=== PATIENT | female | born 1990 | race Caucasian/White ===

== ENCOUNTER 2016-08-23 04:18 | Emergency (ER) | payer SELFPAY ==
[2016-08-23] MEDS ORDERED: ONDANSETRON 4 MG TAB.RAPDIS PO ONE (06:03)
[2016-08-23] MEDS ORDERED: HALOPERIDOL LACTATE INJ 5 MG/1 ML VIAL IM ONE (06:29)
[2016-08-23 06:30] LABS: ABSOLUTE BASOPHILS # (AUTO) 0.1 10^3/uL (0.0-0.2); ABSOLUTE LYMPHOCYTES (AUTO) 1.1 10^3/uL (0.5-4.7); ABSOLUTE MONOCYTES (AUTO) 0.7 10^3/uL (0.1-1.4); ABSOLUTE NEUT (AUTO) 12.9 10^3/uL (1.7-8.2); BASOPHILS % (AUTO) 0.4 % (0-2); EOSINOPHILS % (AUTO) 0.1 % (0-6); HEMATOCRIT 44.5 % (36.0-47.0); HEMOGLOBIN 15.3 g/dL (12.0-15.5); HGB HCT DIFFERENCE 1.4; LYMPHOCYTES % (AUTO) 7.5 % (13-45); MEAN CORPUSCULAR HEMOGLOBIN 31.1 pg (27.0-33.4); MEAN CORPUSCULAR HGB CONC 34.3 g/dL (32.0-36.0); MEAN CORPUSCULAR VOLUME 91 fl (80-97); MONOCYTES % (AUTO) 4.4 % (3-13); RED BLOOD COUNT 4.91 10^6/uL (3.72-5.28); RED CELL DISTRIBUTION WIDTH 13.5 % (11.5-14.0); SEGMENTED NEUTROPHILS % (AUTO) 87.6 % (42-78); WHITE BLOOD COUNT 14.8 10^3/uL (4.0-10.5)
[2016-08-23 07:13] LABS: ALANINE AMINOTRANSFERASE 32 U/L (9-52); ALBUMIN 4.4 g/dL (3.5-5.0); ALKALINE PHOSPHATASE 70 U/L (38-126); ANION GAP 16 (5-19); ASPARTATE AMINO TRANSFERASE 36 U/L (14-36); BILIRUBIN,TOTAL 0.8 mg/dL (0.2-1.3); BLOOD UREA NITROGEN 10 mg/dL (7-20); CALCIUM 9.9 mg/dL (8.4-10.2); CARBON DIOXIDE 21 mmol/L (22-30); CHLORIDE 108 mmol/L (98-107); GLUCOSE 116 mg/dL (75-110); LIPASE 78.9 U/L (23-300); POTASSIUM 3.5 mmol/L (3.6-5.0); SODIUM 144.5 mmol/L (137-145); TOTAL PROTEIN 7.5 g/dL (6.3-8.2)
--- NOTE | 2016-08-23 07:30 | ER Document Report ---
ED General - General Chief Complaint: Breathing Difficulty Stated Complaint: DIFFICULTY BREATHING Mode of Arrival: Ambulatory Information source: Patient Notes: 26-year-old female presents with vomiting that started suddenly this morning. Patient notes no unusual food yesterday. Patient denies any fevers or chills. Patient admits to generalized abdominal burning sensation without any specific point tenderness TRAVEL OUTSIDE OF THE [place] IN LAST 30 DAYS: No - HPI Onset: Just prior to arrival Onset/Duration: Sudden Quality of pain: Burning Severity: Mild Pain Level: 1 Associated symptoms: Nausea, Vomiting Exacerbated by: Denies Relieved by: Denies Similar symptoms previously: No Recently seen / treated by doctor: No - Related Data Allergies/Adverse Reactions: promethazine HCl [From Phenergan] Allergy (Mild, Verified 07/14/15 06:12) Vomiting Past Medical History - General Information source: Patient - Social History Smoking Status: Current Every Day Smoker Cigarette use (# per day): No Chew tobacco use (# tins/day): No Smoking Education Provided: No Frequency of alcohol use: None Drug Abuse: None Family History: None Patient has suicidal ideation: No Patient has homicidal ideation: No - Past Medical History Cardiac Medical History: Reports: Hx Hypertension - related Denies: Hx Coronary Artery Disease, Hx Heart Attack Pulmonary Medical History: Denies: Hx Asthma, Hx Bronchitis, Hx COPD, Hx Pneumonia Neurological Medical History: Denies: Hx Cerebrovascular Accident, Hx Seizures Renal/ Medical History: Reports: Hx Ovarian Cysts - RIGHT AND LEFT OVARIAN CYSTS, HEMORRHAGIC LEFT OVARY CYST Musculoskeltal Medical History: Denies Hx Arthritis Past Surgical History: Reports: Hx Gynecologic Surgery - tubal 09/05, Hx Tubal Ligation - Immunizations Hx Diphtheria, Pertussis, Tetanus Vaccination: Yes - unknown Review of Systems - Review of Systems Notes: REVIEW OF SYSTEMS: CONSTITUTIONAL : Denies fever, chills, or sweats. Denies recent illness. EENT: Denies eye, ear, throat, or mouth pain or symptoms. Denies nasal or sinus congestion or discharge. Denies throat, tongue, or mouth swelling or difficulty swallowing. CARDIOVASCULAR: Denies chest pain. Denies palpitations or racing or irregular heart beat. Denies ankle edema. RESPIRATORY: Admits to shortness of breath GASTROINTESTINAL: Admits to nausea vomiting GENITOURINARY: Denies difficulty urinating, painful urination, burning, frequency, blood in urine, or discharge. FEMALE GENITOURINARY: Denies vaginal bleeding, heavy or abnormal periods, irregular periods. Denies vaginal discharge or odor. MUSCULOSKELETAL: Denies back or neck pain or stiffness. Denies joint pain or swelling. SKIN: Denies rash, lesions or sores. HEMATOLOGIC : Denies easy bruising or bleeding. LYMPHATIC: Denies swollen, enlarged glands. NEUROLOGICAL: Admits to facial tingling PSYCHIATRIC: Denies anxiety or stress. Denies depression, suicidal ideation, or homicidal ideation. ALL OTHER SYSTEMS REVIEWED AND NEGATIVE. Dictation was performed using [employer] voice recognition software PHYSICAL EXAMINATION: GENERAL: Well-appearing, well-nourished and in no acute distress. Patient holding emesis bag without any vomiting HEAD: Atraumatic, normocephalic. EYES: Pupils equal round and reactive to light, extraocular movements intact, conjunctiva are normal. ENT: Nares patent, oropharynx clear without exudates. Moist mucous membranes. NECK: Normal range of motion, supple without lymphadenopathy LUNGS: Breath sounds clear to auscultation bilaterally and equal. No wheezes rales or rhonchi. HEART: Regular rate and rhythm without murmurs ABDOMEN: Soft, nontender, nondistended abdomen. No guarding, no rebound. No masses appreciated. Female : deferred Musculoskeletal: Normal range of motion, no pitting or edema. No cyanosis. NEUROLOGICAL: Cranial nerves grossly intact. Normal speech, normal gait. Normal sensory, motor exams PSYCH: Normal mood, normal affect. SKIN: Warm, Dry, normal turgor, no rashes or lesions noted. Physical Exam - Vital signs Vitals: Temp Pulse Resp BP Pulse Ox 97.1 F 79 30 H 112/80 100 08/23/16 04:22 08/23/16 04:22 08/23/16 04:22 08/23/16 04:22 08/23/16 04:22 Course - Re-evaluation Re-evalutation: 08/23/16 07:30 Physical examination notes no significant abnormality, I do believe the patient is having quite a bit of nausea vomiting lab work is consistent with white count elevation. Given that there is no specific point tenderness I do not believe there is any life-threatening intra-abdominal issues. 08/23/16 10:22 pt noted to have ketonuria, given iv fluids, otherwise nausea and cvomiting has resolved. pt stable for dc After performing a Medical Screening Examination, I estimate there is LOW risk for ACUTE CORONARY SYNDROME, RESPIRATORY FAILURE, SEPSIS OR MENINGITIS, thus I consider the discharge disposition reasonable. The patient and I have discussed the diagnosis and risks, and we agree with discharging home with close follow- up. We also discussed returning to the Emergency Department immediately if new or worsening symptoms occur. We have discussed the symptoms which are most concerning (e.g., changing or worsening pain, trouble swallowing or breathing, neck stiffness, fever) that necessitate immediate return. - Vital Signs Vital signs: Temp Pulse Resp BP Pulse Ox 98.0 F 51 L 16 95/52 L 100 08/23/16 07:29 08/23/16 07:29 08/23/16 07:29 08/23/16 07:29 08/23/16 07:29 - Laboratory Result Diagrams: 08/23/16 06:19 08/23/16 06:52 Laboratory results interpreted by me: 08/23/16 08/23/16 08/23/16 06:19 06:52 07:30 WBC 14.8 H Seg Neutrophils % 87.6 H Lymphocytes % 7.5 L Absolute Neutrophils 12.9 H Potassium 3.5 L Chloride 108 H Carbon Dioxide 21 L Glucose 116 H Urine Protein 100 H Urine Ketones 80 H Urine Blood SMALL H Discharge - Discharge Clinical Impression: Ketonuria Nausea & vomiting Qualifiers: Vomiting type: unspecified Vomiting Intractability: non-intractable Qualified Code(s): R11.2 - Nausea with vomiting, unspecified Condition: Stable Disposition: HOME, SELF-CARE Instructions: Vomiting ([facility]) Additional Instructions: Follow up with your physician tomorrow for further care or return to the ED IMMEDIATELY if symptoms worsen or new concerns occur Prescriptions: Metoclopramide HCl [Reglan 10 mg Tablet] 1 - 2 tab PO ASDIR PRN #25 tablet PRN Reason:
[2016-08-23 08:12] LABS: APPEARANCE,URINE SLIGHTLY-CLOUDY; BILIRUBIN,URINE NEGATIVE (NEGATIVE); GLUCOSE, URINE NEGATIVE (NEGATIVE); KETONES,URINE 80 mg/dL (NEGATIVE); LEUKOCYTE ESTERASE,URINE NEGATIVE (NEGATIVE); NITRITE,URINE NEGATIVE (NEGATIVE); PROTEIN,URINE 100 mg/dL (NEGATIVE); URINE SPECIFIC GRAVITY 1.018; UROBILINOGEN,URINE NEGATIVE mg/dL (<2.0)
[2016-08-23 08:25] LABS: BACTERIA,URINE TRACE /HPF; RBC,URINE 0-1 /HPF; WBC,URINE 0-1 /HPF
[2016-08-23] MEDS ORDERED: NORMAL SALINE 1000 ML 1,000 ML IV ONE (08:26)
[2016-08-23] MEDS ORDERED: METOCLOPRAMIDE HCL INJ/PF 10 MG/2 ML SDV IV ONE (08:26)
[2016-08-23 11:47] VITALS: BP 113/56
== END 2016-08-23 11:47 | disposition home or self-care (01) ==
LOC: ER 04:18
DX: R82.4 Acetonuria (principal); R11.2 Nausea with vomiting, unspecified; R06.00 Dyspnea, unspecified; F17.200 Nicotine dependence, unspecified, uncomplicated; Z98.51 Tubal ligation status
CPT/HCPCS: 99284; 96372; 96374; 36415; 84702; 83690; 85025; 81025; 80053; 81001; S0119; J1630; J2765; J7030

== ENCOUNTER 2016-09-14 05:16 | Emergency (ER) | payer SELFPAY ==
[2016-09-14] MEDS ORDERED: ONDANSETRON HCL INJ/PF 4 MG/2 ML SDV IV ONE ×2 (05:23→05:59)
[2016-09-14] MEDS ORDERED: NORMAL SALINE 1000 ML 1,000 ML IV ONE ×2 (05:59→07:41)
[2016-09-14] MEDS ORDERED: MORPHINE SULFATE 10 MG/ML INJ IV ONE ×2 (05:59→13:18)
[2016-09-14 06:01] LABS: ABSOLUTE LYMPHOCYTES (AUTO) 1.1 10^3/uL (0.5-4.7); ABSOLUTE MONOCYTES (AUTO) 0.5 10^3/uL (0.1-1.4); ABSOLUTE NEUT (AUTO) 17.3 10^3/uL (1.7-8.2); BASOPHILS % (AUTO) 0.2 % (0-2); HEMATOCRIT 39.8 % (36.0-47.0); HEMOGLOBIN 12.9 g/dL (12.0-15.5); HGB HCT DIFFERENCE -1.1; LYMPHOCYTES % (AUTO) 5.8 % (13-45); MEAN CORPUSCULAR HGB CONC 32.5 g/dL (32.0-36.0); MEAN CORPUSCULAR VOLUME 92 fl (80-97); MONOCYTES % (AUTO) 2.7 % (3-13); RED BLOOD COUNT 4.31 10^6/uL (3.72-5.28); RED CELL DISTRIBUTION WIDTH 13.2 % (11.5-14.0); SEGMENTED NEUTROPHILS % (AUTO) 91.3 % (42-78)
[2016-09-14 06:09] LABS: ALANINE AMINOTRANSFERASE 21 U/L (9-52); ALBUMIN 5.3 g/dL (3.5-5.0); ALKALINE PHOSPHATASE 77 U/L (38-126); ASPARTATE AMINO TRANSFERASE 24 U/L (14-36); BILIRUBIN,TOTAL 1.1 mg/dL (0.2-1.3); BLOOD UREA NITROGEN 11 mg/dL (7-20); CALCIUM 10.8 mg/dL (8.4-10.2); CHLORIDE 105 mmol/L (98-107); CREATINE KINASE 93 U/L (30-135); CREATININE RESULT 0.57 mg/dL (0.52-1.25); GLUCOSE 123 mg/dL (75-110); LIPASE 56.9 U/L (23-300); POTASSIUM 3.8 mmol/L (3.6-5.0); TOTAL PROTEIN 7.9 g/dL (6.3-8.2)
[2016-09-14 06:18] LABS: CARBON DIOXIDE 18 mmol/L (22-30); SODIUM 142.6 mmol/L (137-145)
[2016-09-14 06:21] LABS: CREATINE KINASE MB 0.37 ng/mL (<4.55)
[2016-09-14 06:22] LABS: ANION GAP 20 (5-19); TROPONIN I < 0.012 ng/mL
--- NOTE | 2016-09-14 07:17 | ER Document Report ---
ED General - General Chief Complaint: Upper Abdominal Pain Stated Complaint: DIFFICULTY BREATHING Mode of Arrival: Medic Information source: Patient, H Records Notes: 26-year-old female presents with abdominal pain and the right upper quadrant associated with nausea and vomiting. Patient notes symptoms started initially a few weeks ago, symptoms have worsened over the past day the right upper quadrant under her ribs causing her to have shortness of breath. Patient was seen by myself on her initial visit lab was noted mild white count elevation but no specific pinpoint tenderness. Patient now states the pain is specifically in the right upper quadrant TRAVEL OUTSIDE OF THE [place] IN LAST 30 DAYS: No - HPI Onset: Other Onset/Duration: Intermittent, Worse Quality of pain: Sharp Severity: Mild Pain Level: 1 Associated symptoms: Nausea, Vomiting Exacerbated by: Denies Relieved by: Denies Similar symptoms previously: Yes Recently seen / treated by doctor: Yes - Related Data Allergies/Adverse Reactions: promethazine HCl [From Phenergan] Allergy (Mild, Verified 09/14/16 07:04) Vomiting Past Medical History - Social History Smoking Status: Never Smoker Cigarette use (# per day): No Chew tobacco use (# tins/day): No Smoking Education Provided: No Family History: None - Past Medical History Cardiac Medical History: Reports: Hx Hypertension - related Denies: Hx Coronary Artery Disease, Hx Heart Attack Pulmonary Medical History: Denies: Hx Asthma, Hx Bronchitis, Hx COPD, Hx Pneumonia Neurological Medical History: Denies: Hx Cerebrovascular Accident, Hx Seizures Renal/ Medical History: Reports: Hx Ovarian Cysts - RIGHT AND LEFT OVARIAN CYSTS, HEMORRHAGIC LEFT OVARY CYST Musculoskeltal Medical History: Denies Hx Arthritis Past Surgical History: Reports: Hx Gynecologic Surgery - tubal 09/05, Hx Tubal Ligation - Immunizations Hx Diphtheria, Pertussis, Tetanus Vaccination: Yes - unknown Review of Systems - Review of Systems Notes: REVIEW OF SYSTEMS: CONSTITUTIONAL : Denies fever, chills, or sweats. Denies recent illness. EENT: Denies eye, ear, throat, or mouth pain or symptoms. Denies nasal or sinus congestion or discharge. Denies throat, tongue, or mouth swelling or difficulty swallowing. CARDIOVASCULAR: Denies chest pain. Denies palpitations or racing or irregular heart beat. Denies ankle edema. RESPIRATORY: Denies cough, cold, or chest congestion. Denies shortness of breath, difficulty breathing, or wheezing. GASTROINTESTINAL: Right upper quadrant abdominal pain nausea vomiting GENITOURINARY: Denies difficulty urinating, painful urination, burning, frequency, blood in urine, or discharge. FEMALE GENITOURINARY: Denies vaginal bleeding, heavy or abnormal periods, irregular periods. Denies vaginal discharge or odor. MUSCULOSKELETAL: Denies back or neck pain or stiffness. Denies joint pain or swelling. SKIN: Denies rash, lesions or sores. HEMATOLOGIC : Denies easy bruising or bleeding. LYMPHATIC: Denies swollen, enlarged glands. NEUROLOGICAL: Denies confusion or altered mental status. Denies passing out or loss of consciousness. Denies dizziness or lightheadedness. Denies headache. Denies weakness or paralysis or loss of use of either side. Denies problems with gait or speech. Denies sensory loss, numbness, or tingling. Denies seizures. PSYCHIATRIC: Denies anxiety or stress. Denies depression, suicidal ideation, or homicidal ideation. ALL OTHER SYSTEMS REVIEWED AND NEGATIVE. Dictation was performed using [employer] voice recognition software PHYSICAL EXAMINATION: GENERAL: Well-appearing, well-nourished and in mild distress secondary to pain while awake however does not make any noise while sleeping HEAD: Atraumatic, normocephalic. EYES: Pupils equal round and reactive to light, extraocular movements intact, conjunctiva are normal. ENT: Nares patent, oropharynx clear without exudates. Moist mucous membranes. NECK: Normal range of motion, supple without lymphadenopathy LUNGS: Breath sounds clear to auscultation bilaterally and equal. No wheezes rales or rhonchi. HEART: Regular rate and rhythm without murmurs ABDOMEN: Soft, tenderness in the right upper quadrant without any rebound or guarding no tenderness noted on palpation of the abdomen otherwise Female : deferred Musculoskeletal: Normal range of motion, no pitting or edema. No cyanosis. NEUROLOGICAL: Cranial nerves grossly intact. Normal speech, normal gait. Normal sensory, motor exams PSYCH: Normal mood, normal affect. SKIN: Warm, Dry, normal turgor, no rashes or lesions noted. Physical Exam - Vital signs Vitals: Temp 98.0 F 09/14/16 05:24 Course - Re-evaluation Re-evalutation: 09/14/16 07:19 Patient does note to have an increase in her white count today at 19, patient was emergently sent for an ultrasound which noted no acute abnormality. Chest x -ray has been ordered a urinalysis is pending at this time 09/14/16 09:51 Dr. Singh requested hida scan 09/14/16 11:07 Hida scan was negative 09/14/16 13:58 CT abdomen pelvis was performed as no specific abnormality was noted in the right upper quadrant and we requested confused with the patient's presentation, I was contacted by radiology that the patient has free fluid in her abdomen I spoke with the patient she still states the right upper quadrant is where her was penis that she coughed and felt pain in the suprapubic region while she was having her hida scan performed 09/14/16 14:[address] Singh contacted 09/14/16 14:55 Dr Barrios requests repeat cbc 09/14/16 15:00 09/14/16 16:41 CBC noted expected drop in hgb due to iv fluids pt is in no distress, reevaluated multiple times, wishes ot be discharged to try outpatient control of pain Dr Barrios will provide patient with bc After performing a Medical Screening Examination, I estimate there is LOW risk for ACUTE APPENDICITIS, BOWEL OBSTRUCTION, ACUTE CHOLECYSTITIS, PERFORATED DIVERTICULITIS, INCARCERATED HERNIA, PANCREATITIS, PELVIC INFLAMMATORY DISEASE, PERFORATED ULCER, ECTOPIC , or TUBO-OVARIAN ABSCESS, thus I consider the discharge disposition reasonable. Also, there is no evidence or peritonitis , sepsis, or toxicity. The patient and I have discussed the diagnosis and risks , and we agree with discharging home with close follow-up with the understanding that symptoms and presentations can change. We also discussed returning to the Emergency Department immediately if new or worsening symptoms occur. We have discussed the symptoms which are most concerning (e.g., bloody stool, fever, changing or worsening pain, vomiting) that necessitate immediate return. - Vital Signs Vital signs: Temp Pulse Resp BP Pulse Ox 98.5 F 14 109/70 99 09/14/16 15:08 09/14/16 15:07 09/14/16 15:07 09/14/16 15:07 - Laboratory Result Diagrams: 09/14/16 15:04 09/14/16 05:40 Laboratory results interpreted by me: 09/14/16 09/14/16 09/14/16 05:40 05:40 07:00 WBC 19.0 H RBC Hgb Hct Seg Neutrophils % 91.3 H Lymphocytes % 5.8 L Monocytes % 2.7 L Absolute Neutrophils 17.3 H Carbon Dioxide 18 L Anion Gap 20 H Glucose 123 H Calcium 10.8 H Albumin 5.3 H Urine Protein 100 H Urine Ketones 80 H Ur Leukocyte Esterase TRACE H 09/14/16 15:04 WBC 13.0 H RBC 3.34 L Hgb 10.3 L D Hct 31.3 L Seg Neutrophils % Lymphocytes % Monocytes % Absolute Neutrophils 9.8 H Carbon Dioxide Anion Gap Glucose Calcium Albumin Urine Protein Urine Ketones Ur Leukocyte Esterase - Diagnostic Test Radiology reviewed: Image reviewed, Reports reviewed Discharge - Discharge Clinical Impression: Ruptured ovarian cyst, Free fluid in pelvis Abdominal pain Qualifiers: Abdominal location: generalized Qualified Code(s): R10.84 - Generalized abdominal pain Condition: Stable Disposition: HOME, SELF-CARE Instructions: Abdominal Pain ([facility]) Prescriptions: Oxycodone HCl/Acetaminophen [Percocet 5-325 mg Tablet] 1 - 2 tab PO Q4H PRN #25 tablet PRN Reason: Referrals: RADHA ORELLANA MD [ACTIVE STAFF] - Follow up tomorrow
[2016-09-14 07:27] LABS: APPEARANCE,URINE SLIGHTLY-CLOUDY; BILIRUBIN,URINE NEGATIVE (NEGATIVE); GLUCOSE, URINE NEGATIVE (NEGATIVE); KETONES,URINE 80 mg/dL (NEGATIVE); LEUKOCYTE ESTERASE,URINE TRACE (NEGATIVE); NITRITE,URINE NEGATIVE (NEGATIVE); PROTEIN,URINE 100 mg/dL (NEGATIVE); UROBILINOGEN,URINE NEGATIVE mg/dL (<2.0)
[2016-09-14] MEDS ORDERED: NORMAL SALINE 1000 ML 1,000 ML IV PRN (13:55)
--- NOTE | 2016-09-14 14:58 | EKG REPORT ---
SEVERITY:- ABNORMAL ECG - ATRIAL FIBRILLATION VENTRICULAR PREMATURE COMPLEX ABNORMAL Q SUGGESTS ANTERIOR INFARCT NONSPECIFIC T ABNORMALITIES, ANT-LAT LEADS : Confirmed by: Lali Diego MD 14-Sep-2016 14:58:13
[2016-09-14 15:14] LABS: ABSOLUTE LYMPHOCYTES (AUTO) 1.9 10^3/uL (0.5-4.7); ABSOLUTE MONOCYTES (AUTO) 1.3 10^3/uL (0.1-1.4); ABSOLUTE NEUT (AUTO) 9.8 10^3/uL (1.7-8.2); BASOPHILS % (AUTO) 0.3 % (0-2); EOSINOPHILS % (AUTO) 0.1 % (0-6); HEMATOCRIT 31.3 % (36.0-47.0); HGB HCT DIFFERENCE -0.4; LYMPHOCYTES % (AUTO) 14.7 % (13-45); MEAN CORPUSCULAR HEMOGLOBIN 30.7 pg (27.0-33.4); MEAN CORPUSCULAR HGB CONC 32.8 g/dL (32.0-36.0); MEAN CORPUSCULAR VOLUME 94 fl (80-97); MONOCYTES % (AUTO) 9.8 % (3-13); RED BLOOD COUNT 3.34 10^6/uL (3.72-5.28); RED CELL DISTRIBUTION WIDTH 13.7 % (11.5-14.0); SEGMENTED NEUTROPHILS % (AUTO) 75.1 % (42-78)
[2016-09-14 15:47] LABS: HEMOGLOBIN 10.3 g/dL (12.0-15.5)
[2016-09-14 16:47] VITALS: BP 102/59
[2016-09-14 16:56] LABS: CHLAM PCR NOT DETECTED (NOT DETECT)
--- NOTE | 2016-09-15 08:18 | CONSULTATION REPORT E ---
Consultation Report NAME: CHRISTOS ÁLVAREZ : 1990 AGE: 26Y DATE: 09/14/2016 TO: RADHA ORELLANA M.D. FROM: Ning MADDEN, Requesting Physician HISTORY OF PRESENT ILLNESS: This is a 26-year-old female who status post tubal ligation who presented to the Emergency Room early this morning complaining of abdominal pain. Initially, it was thought to be epigastric, and she underwent right upper quadrant ultrasound and HIDA scan which showed no gallbladder disease. She had general surgical consultation because when she was in the HIDA scan she coughed and noticed increased pelvic pain. During the course of her stay, she had a CT scan which did show free fluid in her peritoneal cavity, and she had known history of ovarian cysts. The CT did not show any ovarian cysts at this time. Her hCG test was negative. Her white count on arrival had been 19,000 but decreased to 13,000 simply with IV hydration. Her hematocrit decreased commensurate with receiving 3-4 L of IV fluid as she had been dehydrated on admission. During the course of her stay, she was not tachycardic or hypotensive. REVIEW OF SYSTEMS: She denies fevers or chills. She does not some heavy menses baseline. She is currently in the mid part of her menstrual cycle. She admitted that the pain started during or after intercourse last night. Review of systems is otherwise unremarkable except for some intermittent constipation. OBJECTIVE: VITAL SIGNS: Heart rate 73. Blood pressure 119/77. GENERAL: The patient appears comfortable. She is smiling as she is talking to me and in no acute distress. ABDOMEN: Soft with mild diffuse tenderness but no guarding or rebound. GENITOURINARY: Exam deferred. IMPRESSION: Likely ruptured ovarian cyst with some free fluid in the pelvis. PLAN: Urine GC and chlamydia testing is pending. The patient will be discharged to home on pelvic rest and only light activity. She is advised to avoid any high impact activity. We discussed risks, benefits, and alternatives of treatment to avoid future episodes of this, and she would like to try the NuvaRing. We will leave a couple of samples for her at the front office supervisor at our clinic tomorrow. She will start this with her next menstrual cycle. She will receive Percocet from the ER physician prior to discharge. She will follow up if her pain increases or she becomes lightheaded, dizzy, etc. . DICTATING PHYSICIAN: RADHA ORELLANA M.D. [id number] PHY#: [id number] ID: [id number] JOB#: [id number] ACCT: [id number] cc:RADHA ORELLANA M.D. >
== END 2016-09-14 17:02 | disposition home or self-care (01) ==
LOC: ER 05:16
DX: N83.209 Unspecified ovarian cyst, unspecified side (principal); R10.84 Generalized abdominal pain; R11.2 Nausea with vomiting, unspecified; D72.829 Elevated white blood cell count, unspecified; R06.02 Shortness of breath; Z88.8 Allergy status to other drugs, medicaments and biological substances
CPT/HCPCS: 93005; 96376; 99285; 96361; 96374; 96375; 86900; 86901; 36415; 82553; 86850; 82550; 84702; 83690; 85025; 81025; 80053; 81001; 84484; 87491; 87591; 71020; 76705; 78227; 74176; 93010; A9537; J2270; J2405; J7030; Q9969; J2805

== ENCOUNTER → 2017-03-09 | Outpatient (CLI) | payer BC ==
--- NOTE | 2017-03-09 09:40 | RADIOLOGY REPORT (SQ) ---
EXAM DESCRIPTION: T SPINE AP/LAT COMPLETED DATE/TIME: 03/09/2017 9:25 am REASON FOR STUDY: PAIN IN THORACIC SPINE M54.6 PAIN IN THORACIC SPINE COMPARISON: None. NUMBER OF VIEWS: Two views. TECHNIQUE: AP and lateral radiographic images acquired of the thoracic spine. LIMITATIONS: None. FINDINGS: MINERALIZATION: Normal. ALIGNMENT: Normal. No scoliosis. VERTEBRAE: No fracture or bone lesion. Maintained height, normal segmentation. DISCS: No significant loss of height or significant narrowing. No large osteophytes. HARDWARE: None in the spine. MEDIASTINUM AND SOFT TISSUES: Normal heart size and aortic contour. No soft tissue abnormality. VISUALIZED LUNG ALEX: Clear. OTHER: No other significant finding. IMPRESSION: NO SIGNIFICANT RADIOGRAPHIC FINDING IN THE THORACIC SPINE. TECHNICAL DOCUMENTATION: JOB ID: [id number] [employer]- All Rights Reserved
== END ==
LOC: OD 09:15
PROVIDERS: ATTEND Physician Assistant
DX: M54.6 Pain in thoracic spine (principal)
CPT/HCPCS: 72070

== ENCOUNTER 2018-05-18 13:50 | Emergency (ER) | payer BC ==
[2018-05-18 14:03] VITALS: BP 132/85
[2018-05-18] MEDS ORDERED: HYDROCODONE/ACETAMINOPHEN 5-325 MG TABLET PO ONE (14:30)
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
--- NOTE | 2018-05-18 15:00 | RADIOLOGY REPORT (SQ) ---
EXAM DESCRIPTION: CHEST 2 VIEWS COMPLETED DATE/TIME: 05/18/2018 2:49 pm REASON FOR STUDY: chest wall pain under L clavicle COMPARISON: 09/14/2016. EXAM PARAMETERS: NUMBER OF VIEWS: two views TECHNIQUE: Digital Frontal and Lateral radiographic views of the chest acquired. RADIATION DOSE: NA LIMITATIONS: none FINDINGS: LUNGS AND PLEURA: No opacities, masses or pneumothorax. No pleural effusion. MEDIASTINUM AND HILAR STRUCTURES: No masses or contour abnormalities. HEART AND VASCULAR STRUCTURES: Heart normal size. No evidence for failure. BONES: No acute findings. HARDWARE: None in the chest. OTHER: No other significant finding. IMPRESSION: NO ACUTE RADIOGRAPHIC FINDING IN THE CHEST. TECHNICAL DOCUMENTATION: JOB ID: [id number] [employer]- All Rights Reserved Reading location - IP/workstation name: [email or web address]
[2018-05-18] MEDS ORDERED: LIDOCAINE 5% (700 MG) TRANSDERMAL ADH..PATCH TP ONE (15:16)
--- NOTE | 2018-05-18 20:55 | EKG REPORT ---
SEVERITY:- NORMAL ECG - SINUS RHYTHM : Confirmed by: Lali Diego MD 18-May-2018 20:54:44
== END 2018-05-18 16:01 | disposition home or self-care (01) ==
LOC: ER 13:50
DX: R07.89 Other chest pain (principal); M54.6 Pain in thoracic spine; L72.8 Other follicular cysts of the skin and subcutaneous tissue; F17.200 Nicotine dependence, unspecified, uncomplicated; I10 Essential (primary) hypertension; Z98.51 Tubal ligation status
CPT/HCPCS: 71046; 93005; 93010; 99283

== ENCOUNTER 2018-06-07 11:00 | Day surgery (SDC) | payer BC ==
[~2018-06-07 11:00] MED LIST: BUPIVACAINE HCL 0.25 % INJ/PF (2.5 MG/1 ML) 30 ML VIAL ONE; CEFAZOLIN 1 GM/D5W RTU 1 GM/50 ML RTUPB IV PRN; LIDOCAINE 1% INJ-PF (10 MG/ML) 30 ML SDV ONE; RINGERS SOLUTION,LACTATED 1,000 ML IV PRN
[2018-06-07] MEDS ORDERED: MIDAZOLAM 2 MG/2 ML INJ ONE (11:20)
[2018-06-07] MEDS ORDERED: PROPOFOL INJ 200 MG/20 ML VIAL IV ONE (11:21)
[2018-06-07] MEDS ORDERED: FENTANYL CITRATE INJ/PF 100 MCG/2 ML AMPUL ONE (11:21)
--- NOTE | 2018-06-07 12:28 | Discharge Summary ---
Discharge Summary (SDC) - Discharge Final Diagnosis: Symptomatic back lipoma Date of Surgery: 06/07/18 Discharge Date: 06/07/18 Condition: Stable Forms: [facility] Discharge Plan Treatment or Instructions: Start home. Diet as tolerated. Activity: Nonstrenuous. [place] 5/325 mg p.o. every 6 hours as needed pain. Over the counter ibuprofen as needed for breakthrough pain. Follow up in my office in 7-10 days. Okay to shower in 48 hours. No tub baths times 2 weeks. Referrals: ANGEL FABIAN MD [ACTIVE STAFF] - Discharge Diet: As Tolerated Respiratory Treatments at Home: Deep Breathing/Coughing, Incentive Spirometer Discharge Activity: Balance Activity w/Rest Home Care Assistance: None Needed Report the Following to Your Physician Immediately: Shortness of Breath, Nausea , Vomiting, Increase in Pain, Fever over 101 Degrees, Unusual Bleeding, Redness , Swelling, Warmth
--- NOTE | 2018-06-07 12:32 | Operative Report ---
Nonrecallable Operative Report DATE OF SURGERY: 06/07/18 PREOPERATIVE DIAGNOSIS: Back lipoma, symptomatic POSTOPERATIVE DIAGNOSIS: 7.5 cm back lipoma OPERATION: 1. Excision of 7.5 cm back lipoma. 2. Intermediate closure of 3 cm back incision. SURGEON: ANGEL FABIAN ANESTHESIA: LMAC TISSUE REMOVED OR ALTERED: Back lipoma COMPLICATIONS: None apparent ESTIMATED BLOOD LOSS: Minimal PROCEDURE: Drains/implants: None. Procedure in detail: After informed consent was obtained, the patient was brought to the operating room and laid in the left lateral decubitus position. A 15 blade scalpel was used to create a 3 cm incision over the area of the lipoma. Subcutaneous tissue was excised using sharp dissection, blunt dissection, and electrocautery. The fatty mass had the appearance of a lipoma, and extended to the fascia of the back. Once excised, the mass measured 7.5 cm in maximal diameter. The specimen was passed off the field. Hemostasis was achieved using Bovie electrocautery. The subcutaneous tissue was closed using 3 -0 Vicryl suture in simple running fashion. The overlying skin was closed using 4-0 Vicryl Rapide suture in subcuticular fashion. A dressing was placed, and the procedure was concluded. All sponge, instrument, and needle counts were correct x2. Condition: Stable.
[2018-06-07] MEDS ORDERED: HYDROCODONE/ACETAMINOPHEN 5-325 MG TABLET ONE (13:19)
== END 2018-06-07 13:57 | disposition home or self-care (01) ==
LOC: SC 11:00
PROVIDERS: ATTEND Surgery
DX: D17.9 Benign lipomatous neoplasm, unspecified (principal); G89.29 Other chronic pain; F17.210 Nicotine dependence, cigarettes, uncomplicated; Z88.8 Allergy status to other drugs, medicaments and biological substances; Z86.718 Personal history of other venous thrombosis and embolism; Z79.899 Other long term (current) drug therapy
CPT/HCPCS: 21931; J2250; J0690; J3010; J3490; J2704; 300

== ENCOUNTER 2018-11-24 17:38 | Emergency (ER) | payer OTHER, BC ==
[2018-11-24 17:58] VITALS: BP 127/76
[2018-11-24] MEDS ORDERED: OXYCODONE-ACETAMINOPHEN 5-325 MG TABLET PO ONE (18:50)
[2018-11-24] MEDS ORDERED: CYCLOBENZAPRINE HCL 10 MG TABLET PO ONE (18:51)
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
== END 2018-11-24 20:31 | disposition home or self-care (01) ==
LOC: ER 17:38
DX: M25.511 Pain in right shoulder (principal); M54.5 Low back pain; R20.2 Paresthesia of skin; M54.2 Cervicalgia; V49.50XA Passenger injured in collision with unspecified motor vehicles in traffic accident, initial encounter; Z98.51 Tubal ligation status
CPT/HCPCS: 72125; 72131; 99284

== ENCOUNTER → 2018-12-28 | Outpatient (CLI) | payer OTHER, BC ==
[2018-12-28 11:19] LABS: ALANINE AMINOTRANSFERASE 28 U/L (9-52); ALBUMIN 4.7 g/dL (3.5-5.0); ALKALINE PHOSPHATASE 60 U/L (38-126); ANION GAP 10 (5-19); ASPARTATE AMINO TRANSFERASE 24 U/L (14-36); BILIRUBIN,DIRECT 0.2 mg/dL (0.0-0.4); BILIRUBIN,TOTAL 0.3 mg/dL (0.2-1.3); BLOOD UREA NITROGEN 7 mg/dL (7-20); CALCIUM 9.7 mg/dL (8.4-10.2); CARBON DIOXIDE 28 mmol/L (22-30); CHLORIDE 103 mmol/L (98-107); CHOLESTEROL 147.21 mg/dL (0-200); GLUCOSE 87 mg/dL (75-110); SODIUM 140.8 mmol/L (137-145); TOTAL PROTEIN 7.4 g/dL (6.3-8.2); TRIGLYCERIDES 54 mg/dL (<150)
[2018-12-28 11:32] LABS: DIRECT LDL 66 mg/dL (<100)
== END ==
LOC: LAB 10:34
PROVIDERS: ATTEND Family Medicine
DX: Z13.1 Encounter for screening for diabetes mellitus (principal); H57.10 Ocular pain, unspecified eye; F32.1 Major depressive disorder, single episode, moderate; R79.9 Abnormal finding of blood chemistry, unspecified
CPT/HCPCS: 36415; 80053; 80061; 82607; 83036; 84443

== ENCOUNTER → 2019-01-16 | Outpatient (CLI) | payer BC ==
--- NOTE | 2019-01-16 13:33 | RADIOLOGY REPORT (SQ) ---
EXAM DESCRIPTION: U/S RETROPERITON (RENAL/AORTA) COMPLETED DATE/TIME: 01/16/2019 1:19 pm REASON FOR STUDY: CALCULUS OF KIDNEY N20.0 CALCULUS OF KIDNEY COMPARISON: None. TECHNIQUE: Dynamic and static grayscale images acquired of the kidneys and bladder and recorded on P ACS. Additional selected color Doppler and spectral images recorded. LIMITATIONS: None. FINDINGS: RIGHT KIDNEY: Normal size measuring 11.9 cm. Normal echogenicity. No solid or suspicious m asses. No hydronephrosis. No calcifications. LEFT KIDNEY: Normal size measuring 11.5 cm. Echogenic foci in the interpolar region measuring 6 x 3 mm. No solid or suspicious masses. No hydronephrosis. BLADDER: No masses. OTHER FINDINGS: No other significant finding. IMPRESSION: 1. No evidence of hydronephrosis. 2. Left 6 x 3 mm interpolar echogenic focus, likely nonobstructing stone. TECHNICAL DOCUMENTATION: JOB ID: [id number] [employer]- All Rights Reserved Reading location - IP/workstation name: [email or web address]
== END ==
LOC: RAD 10:47
PROVIDERS: ATTEND Internal Medicine Nephrology
DX: N20.0 Calculus of kidney (principal)
CPT/HCPCS: 76770

== ENCOUNTER → 2019-01-31 | Outpatient (CLI) | payer BC ==
[2019-01-31 16:13] LABS: HEMATOCRIT 39.8 % (36.0-47.0); HEMOGLOBIN 13.3 g/dL (12.0-15.5); MEAN CORPUSCULAR HEMOGLOBIN 32.1 pg (27.0-33.4); MEAN CORPUSCULAR HGB CONC 33.4 g/dL (32.0-36.0); MEAN CORPUSCULAR VOLUME 96 fl (80-97); PLATELET COUNT 281 10^3/uL (150-450); RED BLOOD COUNT 4.15 10^6/uL (3.72-5.28); RED CELL DISTRIBUTION WIDTH 13.2 % (11.5-14.0); WHITE BLOOD COUNT 12.7 10^3/uL (4.0-10.5)
[2019-01-31 16:20] LABS: APPEARANCE,URINE SLIGHTLY-CLOUDY; BILIRUBIN,URINE NEGATIVE (NEGATIVE); COLOR,URINE YELLOW; GLUCOSE, URINE NEGATIVE (NEGATIVE); KETONES,URINE NEGATIVE (NEGATIVE); LEUKOCYTE ESTERASE,URINE NEGATIVE (NEGATIVE); NITRITE,URINE NEGATIVE (NEGATIVE); PROTEIN,URINE NEGATIVE (NEGATIVE); URINE SPECIFIC GRAVITY 1.014; UROBILINOGEN,URINE NEGATIVE mg/dL (<2.0)
[2019-01-31 16:30] LABS: ANION GAP 11 (5-19); BLOOD UREA NITROGEN 6 mg/dL (7-20); CALCIUM 10.1 mg/dL (8.4-10.2); CARBON DIOXIDE 27 mmol/L (22-30); CHLORIDE 104 mmol/L (98-107); GLUCOSE 97 mg/dL (75-110); POTASSIUM 3.6 mmol/L (3.6-5.0); SODIUM 141.6 mmol/L (137-145)
== END ==
LOC: OD 15:23
PROVIDERS: ATTEND Internal Medicine Nephrology
DX: N20.0 Calculus of kidney (principal)
CPT/HCPCS: 36415; 80048; 81001; 85027

== ENCOUNTER 2019-03-13 15:54 | Emergency (ER) | payer BC, OTHER ==
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
[2019-03-13 18:02] LABS: ABSOLUTE BASOPHILS # (AUTO) 0.1 10^3/uL (0.0-0.2); ABSOLUTE EOSINOPHILS # (AUTO) 0.1 10^3/uL (0.0-0.6); ABSOLUTE LYMPHOCYTES (AUTO) 3.1 10^3/uL (0.5-4.7); ABSOLUTE MONOCYTES (AUTO) 0.5 10^3/uL (0.1-1.4); ABSOLUTE NEUT (AUTO) 5.4 10^3/uL (1.7-8.2); BASOPHILS % (AUTO) 0.7 % (0-2); EOSINOPHILS % (AUTO) 0.6 % (0-6); HEMATOCRIT 42.1 % (36.0-47.0); HEMOGLOBIN 14.2 g/dL (12.0-15.5); LYMPHOCYTES % (AUTO) 34.4 % (13-45); MEAN CORPUSCULAR HEMOGLOBIN 32.5 pg (27.0-33.4); MEAN CORPUSCULAR HGB CONC 33.7 g/dL (32.0-36.0); MEAN CORPUSCULAR VOLUME 96 fl (80-97); PLATELET COUNT 328 10^3/uL (150-450); RED BLOOD COUNT 4.37 10^6/uL (3.72-5.28); SEGMENTED NEUTROPHILS % (AUTO) 59.3 % (42-78); TOTAL CELLS COUNTED % (AUTO) 100 %; WHITE BLOOD COUNT 9.2 10^3/uL (4.0-10.5)
[2019-03-13 18:16] LABS: APPEARANCE,URINE SLIGHTLY-CLOUDY; BILIRUBIN,URINE NEGATIVE (NEGATIVE); COLOR,URINE YELLOW; GLUCOSE, URINE NEGATIVE (NEGATIVE); KETONES,URINE NEGATIVE (NEGATIVE); LEUKOCYTE ESTERASE,URINE NEGATIVE (NEGATIVE); NITRITE,URINE NEGATIVE (NEGATIVE); PROTEIN,URINE NEGATIVE (NEGATIVE); URINE SPECIFIC GRAVITY 1.013; UROBILINOGEN,URINE NEGATIVE mg/dL (<2.0)
[2019-03-13 18:19] LABS: ALANINE AMINOTRANSFERASE 23 U/L (9-52); ALBUMIN 5.2 g/dL (3.5-5.0); ALKALINE PHOSPHATASE 62 U/L (38-126); ANION GAP 11 (5-19); ASPARTATE AMINO TRANSFERASE 25 U/L (14-36); BILIRUBIN,DIRECT 0.1 mg/dL (0.0-0.4); BILIRUBIN,TOTAL 0.5 mg/dL (0.2-1.3); BLOOD UREA NITROGEN 7 mg/dL (7-20); CALCIUM 10.3 mg/dL (8.4-10.2); CARBON DIOXIDE 29 mmol/L (22-30); CHLORIDE 102 mmol/L (98-107); GLUCOSE 88 mg/dL (75-110); POTASSIUM 4.4 mmol/L (3.6-5.0); TOTAL PROTEIN 8.1 g/dL (6.3-8.2)
--- NOTE | 2019-03-13 18:36 | RADIOLOGY REPORT (SQ) ---
EXAM DESCRIPTION: CT ABD/PELVIS WITH IV ONLY COMPLETED DATE/TIME: 03/13/2019 6:10 pm REASON FOR STUDY: bilateral flank pain possible kidney disease COMPARISON: None. TECHNIQUE: CT scan of the abdomen and pelvis performed using helical scanning technique with dynamic intravenous contrast injection. No oral contrast. Images reviewed with lung, soft tissue, and bone windows. Reconstructed coronal and sagittal MPR images reviewed. Delayed images for evaluation of the urinary system also acquired. All images stored on PACS. All CT scanners at this facility use dose modulation, iterative reconstruction, and/or weight based d osing when appropriate to reduce radiation dose to as low as reasonably achievable (ALARA). [facility]: Dose Right [facility]: CareDose [facility]: Dose Right [facility]: Teradose 4D [facility]: [employer] CONTRAST TYPE AND DOSE: contrast/concentration: Isovue 350.00 mg/ml; Total Contrast Delivered: 67.0 ml; Total Saline Delivered: 65.0 ml RENAL FUNCTION: BUN 10 creatinine 0.52 RADIATION DOSE: CT Rad equipment meets quality standard of care and radiation dose reduction techniq ues were employed. CTDIvol: 4.9 - 4.9 mGy. DLP: 512 mGy-cm.. LIMITATIONS: None. FINDINGS: LOWER CHEST: No significant findings. No nodules or infiltrates. LIVER: Normal size. No masses. No dilated ducts. SPLEEN: Normal size. No focal lesions. PANCREAS: No masses. No significant calcifications. No adjacent inflammation or peripancreatic fluid collections. Pancreatic duct not dilated. GALLBLADDER: No identified stones by CT criteria. No inflammatory changes to suggest cholecystitis. ADRENAL GLANDS: No significant masses or asymmetry. RIGHT KIDNEY AND URETER: No solid masses. No significant calcifications. No hydronephrosis or hyd roureter. LEFT KIDNEY AND URETER: No solid masses. No significant calcifications. No hydronephrosis or hydr oureter. AORTA AND VESSELS: No aneurysm. No dissection. Renal arteries, SMA, celiac without stenosis. RETROPERITONEUM: No retroperitoneal adenopathy, hemorrhage or masses. BOWEL AND PERITONEAL CAVITY: No masses or inflammatory changes. No free fluid or peritoneal masses. APPENDIX: Not identified. PELVIS: No mass. No free fluid. Normal bladder. ABDOMINAL WALL: No masses. No hernias. BONES: No significant or acute findings. OTHER: No other significant finding. IMPRESSION: NO SIGNIFICANT OR ACUTE FINDING IN THE ABDOMEN OR PELVIS ON CT SCAN WITH IV CONTRAST. TECHNICAL DOCUMENTATION: JOB ID: [id number] Quality ID # [id number]: Final reports with documentation of one or more dose reduction techniques (e.g., Au tomated exposure control, adjustment of the mA and/or kV according to patient size, use of iterative reconstruction technique) 2010 [employer]- All Rights Reserved Reading location - IP/workstation name: [email or web address]
[2019-03-13] MEDS ORDERED: TRAMADOL HCL 50 MG TABLET PO ONE (22:26)
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
[2019-03-13 22:30] VITALS: BP 113/82
== END 2019-03-13 22:34 | disposition home or self-care (01) ==
LOC: ER 15:54
DX: R10.9 Unspecified abdominal pain (principal); G89.29 Other chronic pain; M54.9 Dorsalgia, unspecified; R53.1 Weakness; Z88.8 Allergy status to other drugs, medicaments and biological substances; Z87.42 Personal history of other diseases of the female genital tract; Z98.51 Tubal ligation status; Z87.442 Personal history of urinary calculi
CPT/HCPCS: 36415; 74177; 80053; 81001; 81025; 85025; 99284

== ENCOUNTER → 2019-11-28 | Outpatient (CLI) | payer BC ==
--- NOTE | 2019-11-28 13:13 | NEURO WORKBENCH EEG REPORT ---
EEG Report Patient: Jessica Early [place] ID: [id number] Referring Doctor: Juan J Flynn MD DOS: 11/28/2019 Medications: Amitriptyline History This is a 29 year old right handed woman with a history of episodes of zoning out weekly. This EEG was requested for possible seizures. EEG Interpretation This EEG was recorded in the awake and drowsy states. The awake EEG is characterized by a well-organized background with a well-developed posterior dominant rhythm of 10Hz. The remainder of the background consisted of mainly alpha activity with low amplitude beta. There was mu present. Drowsiness was characterized by slowing of the background rhythms. Photic stimulation resulted in a moderate driving response. Hyperventilation resulted in mild generalized background slowing. There were rare left parietal sharply contoured waveforms (maximal at P3) noted during wakefulness, but no definitive epileptiform abnormalities. The EKG showed a regular rhythm mainly in the 50s. EEG Classification EKG mild bradycardia EEG Impression This EEG is within normal limits for age in the wake and drowsy states. There were rare left parietal sharply contoured waveforms but no definitive epileptiform abnormalities. A repeat EEG may be considered if clinically indicated. The EKG showed a mild bradycardia which may require further investigation based on clinical correlation. INTERPRETING NEUROLOGIST: Ashley Pfeiffer MD, FRCPC Board Certified in Neurology, with special qualification in Child Neurology, and in Clinical Neurophysiology [facility]
== END ==
LOC: NEURO 08:33
PROVIDERS: ATTEND Pediatrics
DX: R47.81 Slurred speech (principal)
CPT/HCPCS: 95819

== ENCOUNTER → 2019-12-17 | Outpatient (CLI) | payer BC ==
--- NOTE | 2019-12-17 15:27 | EKG REPORT ---
SEVERITY:- NORMAL ECG - SINUS RHYTHM : Confirmed by: Lali Diego MD 17-Dec-2019 15:26:41
== END ==
LOC: OD 08:53
PROVIDERS: ATTEND Pediatrics
DX: R47.81 Slurred speech (principal); R41.0 Disorientation, unspecified; R94.31 Abnormal electrocardiogram [ECG] [EKG]
CPT/HCPCS: 93005; 93010